=== PATIENT | male | born 1960 | race Caucasian/White ===

== ENCOUNTER 2020-09-11 16:53 | Outpatient (REF) | payer OTHER, SELFPAY | END 2020-09-11 16:54 | disposition home or self-care (01) | LOC: HO.LAB 16:53 | PROVIDERS: PCP Internal Medicine; Visit Provider Internal Medicine | DX: Z20.828 Contact with and (suspected) exposure to other viral communicable diseases (principal) | CPT/HCPCS: C9803; U0003 ==

== ENCOUNTER 2020-11-06 08:55 | Outpatient (REF) | payer OTHER, SELFPAY | END 2020-11-06 08:56 | disposition home or self-care (01) | LOC: HO.LAB 08:55 | PROVIDERS: Visit Provider Internal Medicine | DX: Z20.822 Contact with and (suspected) exposure to COVID-19 (principal) | CPT/HCPCS: 36415; C9803; U0003; U0005 ==

== ENCOUNTER 2020-11-12 08:36 | Outpatient (REF) | payer OTHER, SELFPAY | END 2020-11-12 08:37 | disposition home or self-care (01) | LOC: HO.LAB 08:36 | PROVIDERS: PCP Internal Medicine; Visit Provider Internal Medicine | DX: Z20.822 Contact with and (suspected) exposure to COVID-19 (principal) | CPT/HCPCS: 36415; C9803; U0003; U0005 ==